=== PATIENT | female | born 1935 | race Caucasian/White ===

== ENCOUNTER 2016-12-18 16:25 | Inpatient (IN) | payer OTHER, BC ==
[~2016-12-18] VITALS: Ht 162.6 cm; Wt 57.1 kg
[2016-12-18 17:18] LABS: INTER. NORMALIZED RATIO 3.1; PROTHROMBIN TIME 35.5 SEC (10.2-12.9)
[2016-12-18 19:51] LABS: CREATININE 0.6 mg/dL (0.6-1.3); POTASSIUM 3.2 mEq/L (3.7-5.4)
[2016-12-18 19:54] LABS: HEMATOCRIT 39.6 % (36.0-46.0); MCH 31.1 PG (29.0-34.0); MCHC 33.6 G/DL (30.0-36.0); MCV 92.7 FL (83-99); MEAN PLAT.VOLUME 9.5 uM^3 (9.5-12.4); PLATELET COUNT 138 K/uL (156-360); RBC DIS.WIDTH-CV 14.7 % (11.8-14.6); RBC DIS.WIDTH-SD 50.3 % (39-53); RED BLOOD COUNT 4.27 M/uL (3.80-5.20); WHITE BLOOD COUNT 6.3 K/uL (4.1-10.2)
[2016-12-18] MEDS ORDERED: CRESTOR20 MG PO (23:07)
[2016-12-18] MEDS ORDERED: CARTIA XT240 MG PO (23:07)
[2016-12-18] MEDS ORDERED: MICROZIDE12.5 M1 PO (23:08)
[2016-12-18] MEDS ORDERED: FOSAMAX70 MG PO (23:09)
[2016-12-18] MEDS ORDERED: CALCIUM 600 +1 EA16 PO (23:10)
[2016-12-18] MEDS ORDERED: ONE DAILY FOR1 EAC3 PO (23:11)
[2016-12-18] MEDS ORDERED: GLUCOSAMINE H1500 MG PO (23:11)
[2016-12-18] MEDS ORDERED: CHONDROITIN SU250 MG PO (23:13)
[2016-12-18] MEDS ORDERED: OMEGA 3-6-9 CO400 MG PO (23:14)
[2016-12-18] MEDS ORDERED: VITAMIN C1000 MG PO (23:15)
[2016-12-18] MEDS ORDERED: ZYRTEC10 M3 PO (23:17)
[2016-12-18] MEDS ORDERED: PROBIOTIC ACID1 EAC3 PO ×2 (23:18)
[2016-12-18] MEDS ORDERED: PEPCID COMPLET1 EACH PO (23:20)
[2016-12-18] MEDS ORDERED: FIBER500 MG PO (23:22)
[2016-12-18] MEDS ORDERED: GLUCOSAMINE-CH1 EA27 PO (23:51)
[2016-12-19] VITALS (7 sets, daily range): BP systolic 137–168; BP diastolic 63–77
[2016-12-19 00:27] LABS: HEMATOCRIT 37.1 % (36.0-46.0)
[2016-12-19 07:06] LABS: HEMATOCRIT 35.8 % (36.0-46.0); MCH 32.5 PG (29.0-34.0); MCHC 34.4 G/DL (30.0-36.0); MCV 94.7 FL (83-99); MEAN PLAT.VOLUME 9.9 uM^3 (9.5-12.4); PLATELET COUNT 117 K/uL (156-360); RBC DIS.WIDTH-CV 15.2 % (11.8-14.6); RED BLOOD COUNT 3.78 M/uL (3.80-5.20); WHITE BLOOD COUNT 5.8 K/uL (4.1-10.2)
[2016-12-19 07:22] LABS: ALKALINE PHOSPHATASE 63 IU/L (3-129); ANION GAP 8 MEQ/L (2-14); CHLORIDE 107 MEQ/L (99-109); GFR ESTIMATE (CALCULATED) > 59 mL/min/; GLUCOSE 105 mg/dL (70-99); POTASSIUM 3.5 MEQ/L (3.7-5.4); SAMPLE HEMOLYSIS CHECK 0; SAMPLE ICTERIC CHECK 0; SAMPLE LIPEMIA CHECK 0; SODIUM 142 MEQ/L (136-147); TOTAL BILIRUBIN 1.1 MG/DL (0.0-1.0); UREA NITROGEN (BUN) 10 mg/dL (9-23)
[2016-12-20 03:56] VITALS: BP 162/72
[2016-12-20 06:15] LABS: HEMATOCRIT 32.4 % (36.0-46.0); MCH 31.9 PG (29.0-34.0); MCHC 33.6 G/DL (30.0-36.0); MCV 94.7 FL (83-99); MEAN PLAT.VOLUME 9.6 uM^3 (9.5-12.4); PLATELET COUNT 98 K/uL (156-360); RBC DIS.WIDTH-SD 52.8 % (39-53); RED BLOOD COUNT 3.42 M/uL (3.80-5.20); WHITE BLOOD COUNT 4.5 K/uL (4.1-10.2)
[2016-12-20 06:44] LABS: INTER. NORMALIZED RATIO 1.3; PROTHROMBIN TIME 14.5 SEC (10.2-12.9); PTT 30.4 SEC (25-37)
[2016-12-20 06:45] LABS: ANION GAP 7 MEQ/L (2-14); CHLORIDE 108 MEQ/L (99-109); GFR ESTIMATE (CALCULATED) > 59 mL/min/; GLUCOSE 84 mg/dL (70-99); POTASSIUM 3.4 MEQ/L (3.7-5.4); SAMPLE HEMOLYSIS CHECK 0; SAMPLE ICTERIC CHECK 0; SAMPLE LIPEMIA CHECK 0; SODIUM 142 MEQ/L (136-147); UREA NITROGEN (BUN) 10 mg/dL (9-23)
[2016-12-20 08:15] VITALS: BP 154/78
[2016-12-20 11:30] VITALS: BP 169/56
[2016-12-20 15:59] VITALS: BP 163/73
[2016-12-20] MEDS ORDERED: NORCO 5/3251 TABLET PO (17:24)
[2016-12-20] MEDS ORDERED: DOCUSATE SODIU100 MG PO (17:27)
== END 2016-12-20 18:49 | disposition home or self-care (01) | DRG 699 ==
LOC: EME 16:25 → EDOF 22:44 → 3EAST 22:44 → ENRESERV 22:48 → 3EAST 23:57
PROVIDERS: Emergency Medicine; Physician Assistant; Thoracic Surgery (Cardiothoracic Vascular Surgery)
DX: S37.012A Minor contusion of left kidney, initial encounter (principal); J90 Pleural effusion, not elsewhere classified; S30.1XXA Contusion of abdominal wall, initial encounter; N28.1 Cyst of kidney, acquired; W01.0XXA Fall on same level from slipping, tripping and stumbling without subsequent striking against object, initial encounter; I35.0 Nonrheumatic aortic (valve) stenosis; I48.2 Chronic atrial fibrillation; I25.10 Atherosclerotic heart disease of native coronary artery without angina pectoris; I11.9 Hypertensive heart disease without heart failure; E11.9 Type 2 diabetes mellitus without complications; I44.7 Left bundle-branch block, unspecified; E78.5 Hyperlipidemia, unspecified; Z95.3 Presence of xenogenic heart valve; Z79.01 Long term (current) use of anticoagulants; Z87.891 Personal history of nicotine dependence; Z90.49 Acquired absence of other specified parts of digestive tract
CPT/HCPCS: 74177; 80047; 80048; 80053; 85014; 85018; 85027; 85610; 85730; 86900; 86901; 94799; 99281; 99285; J2270; J2405; J3430; J7030; J7040; J7050; Q0169